=== PATIENT | female | born 1965 | race Caucasian/White ===

== ENCOUNTER → 2019-10-21 | Outpatient (CLI) | payer OTHER ==
[~2019-10-21] MED LIST: ALPR.5 PO; BENTYL10 MG PO; BUPR150ER PO; COLE625 PO; Estradiol0.5 MG PO; HYOS.125 SL; LAMICTAL XR200 MG PO; NEXIUM 24HR20 MG PO; Nuvaring Vagin1 EACH VG; QUET200 PO; Sudogest120 MG PO; Wellbutrin Sr200 MG PO; ZOLP10 PO
== END | disposition home or self-care (01) ==
LOC: LAB SHORT 08:38 → PLD 08:38
DX: D23.22 Other benign neoplasm of skin of left ear and external auricular canal (principal)
CPT/HCPCS: 88305

== ENCOUNTER → 2019-11-25 | Outpatient (CLI) | payer OTHER ==
[2019-11-26 15:10] LABS: HPV 16 Negative (Negative); HPV 18 Negative (Negative); HPV OTHER HR TYPES Negative (Negative)
== END | disposition home or self-care (01) ==
LOC: LAB 16:42 → LAB SHORT 16:42
PROVIDERS: Advanced Practice Midwife
DX: Z01.419 Encounter for gynecological examination (general) (routine) without abnormal findings (principal)
CPT/HCPCS: 87624; G0123

== ENCOUNTER → 2020-02-04 | Outpatient (CLI) | payer OTHER | END | disposition home or self-care (01) | LOC: LAB 15:50 → LAB SHORT 15:50 | DX: N39.0 Urinary tract infection, site not specified (principal) | CPT/HCPCS: 87086 ==

== ENCOUNTER → 2020-04-28 | Outpatient (CLI) | payer OTHER | END | disposition home or self-care (01) | LOC: LAB 13:28 → LAB SHORT 13:28 | DX: N84.1 Polyp of cervix uteri (principal) | CPT/HCPCS: 88305 ==

== ENCOUNTER → 2020-12-15 | Outpatient (CLI) | payer OTHER | LOC: LAB 08:19 → LAB SHORT 08:19 | DX: D22.22 Melanocytic nevi of left ear and external auricular canal (principal) | CPT/HCPCS: 88305; 88341; 88342 ==

== ENCOUNTER → 2022-01-30 | Outpatient (CLI) | payer OTHER | END | disposition home or self-care (01) | LOC: PLD 12:24 → LAB SHORT 12:24 | DX: C43.71 Malignant melanoma of right lower limb, including hip (principal) | CPT/HCPCS: 88305 ==

== ENCOUNTER → 2022-02-15 | Outpatient (CLI) | payer OTHER | END | disposition home or self-care (01) | LOC: LAB SHORT 08:12 → LAB 08:12 | DX: C43.71 Malignant melanoma of right lower limb, including hip (principal) | CPT/HCPCS: 88305 ==

== ENCOUNTER → 2022-03-08 | Outpatient (CLI) | payer OTHER | END | disposition home or self-care (01) | LOC: LAB 09:30 → LAB SHORT 09:30 | DX: L03.115 Cellulitis of right lower limb (principal) | CPT/HCPCS: 87070; 87077; 87186; 87205 ==

== ENCOUNTER → 2022-10-12 | Outpatient (CLI) | payer OTHER | END | disposition home or self-care (01) | LOC: LAB SHORT 08:10 → LAB 08:10 | DX: L08.0 Pyoderma (principal) | CPT/HCPCS: 87070; 87075; 87205 ==

== ENCOUNTER 2024-10-13 02:14 | Emergency (ER) | payer OTHER ==
[~2024-10-13] VITALS: Ht 162.6 cm; Wt 94.8 kg
[2024-10-13] MEDS ORDERED: HyDROXyzine HCl 25 MG Tab PO ONE (02:35)
[2024-10-13] MEDS ORDERED: NS 1,000 ML IV SCH (02:35)
[2024-10-13] MEDS ORDERED: Metoclopramide HCl 5MG / ML 2ML Vial IV ONE (02:35)
[2024-10-13] MEDS ORDERED: DiphenhydrAMINE HCl 50 MG/ML 1ML Vial IV ONE (02:35)
[2024-10-13 02:44] LABS: BASOPHILS ABSOLUTE AUTO 0.05 K/mm3 (0.00-0.23); BASOPHILS PERCENT AUTO 1 % (0-2); EOSINOPHILS ABSOLUTE AUTO 0.15 K/mm3 (0.00-0.68); EOSINOPHILS PERCENT AUTO 2 % (0-6); Hematocrit 38.6 % (33.0-51.0); Hemoglobin 12.3 g/dL (11.5-16.0); IMMATURE GRAN ABSOLUTE AUTO 0.04 K/mm3 (0.00-0.10); IMMATURE GRAN PERCENT AUTO 1 % (0-1); LYMPHOCYTES PERCENT AUTO 53 % (21-46); MONOCYTES ABSOLUTE AUTO 0.43 K/mm3 (0.16-1.47); MONOCYTES PERCENT AUTO 6 % (4-13); Mean Corpuscular HGB 22.6 pg (26.0-34.0); Mean Corpuscular HGB Conc 31.9 g/dL (31.5-36.5); Mean Corpuscular Volume 71 fL (80-100); Mean Platelet Volume 10.3 fL (9.1-12.4); NEUTROPHILS ABSOLUTE AUTO 2.74 K/mm3 (1.96-9.15); NEUTROPHILS PERCENT AUTO 37 % (41-73); Platelet Count 202 K/mm3 (150-400); RDW Coefficient Variation 16.3 % (11.7-14.2); RDW Standard Deviation 40.7 fL (35.1-46.3); Red Blood Cell Count 5.44 M/mm3 (3.80-5.20); White Blood Cell Count 7.31 K/mm3 (4.00-11.30)
[2024-10-13 03:05] LABS: Albumin, Blood 3.5 g/dL (3.4-5.0); Albumin/Globulin Ratio 1.2 (0.8-1.8); Bilirubin, Total 0.5 mg/dL (0.1-1.0); Bun/Creatinine Ratio 14.6 (12.0-20.0); Calcium, Blood 8.4 mg/dL (8.5-10.1); Creatinine, Blood 0.75 mg/dL (0.40-1.00); Globulin, Blood 2.8 g/dL (2.2-4.0); Magnesium, Blood 2.2 mg/dL (1.6-2.4); Potassium, Blood 3.7 mmol/L (3.5-5.5); Total Protein, Blood 6.3 g/dL (6.4-8.2)
[2024-10-13 03:30] VITALS: BP 129/78
[2024-10-13] MEDS ORDERED: LORAZEPAM0.5 MG PO (03:32)
[2024-10-13] MEDS ORDERED: GABA300 PO (03:32)
[2024-10-13] MEDS ORDERED: Tetracaine HCl/Pf 0.5% Opth Soln 4 ml BOTHEYES ONE (03:35)
[2024-10-13] MEDS ORDERED: METO10 PO (04:32)
== END 2024-10-13 04:54 | disposition home or self-care (01) ==
LOC: ER 02:14
PROVIDERS: Student in an Organized Health Care Education/Training Program
DX: H53.8 Other visual disturbances (principal); R51.9 Headache, unspecified; Z79.899 Other long term (current) drug therapy
CPT/HCPCS: 70450; 80053; 83735; 85025; 85651; 93005; 93010; 96374; 96375; 99284-25; A9270; J1200; J2765; J7030